=== PATIENT | male | born 1955 | race Caucasian/White ===

== ENCOUNTER 2019-08-01 07:55 | Emergency (ER) | payer MEDICAID ==
[~2019-08-01] VITALS: Ht 162.6 cm; Wt 68.0 kg
[2019-08-01 09:30] VITALS: BP 133/77
== END 2019-08-01 09:30 | disposition home or self-care (01) ==
LOC: ER 07:55
DX: K21.9 Gastro-esophageal reflux disease without esophagitis (principal); K29.70 Gastritis, unspecified, without bleeding; R05 Cough
CPT/HCPCS: 99283